=== PATIENT | male | born 1990 | race African-American/Black ===

== ENCOUNTER 2017-04-23 10:22 | Emergency (ER) | payer MEDICAID ==
[~2017-04-23] VITALS: Ht 182.9 cm; Wt 75.0 kg
[2017-04-23 11:28] VITALS: BP 111/74
[2017-04-23 12:06] LABS: BASOPHILS % 0.4 % (0.0-2.0); CARBON DIOXIDE 28 mEq/L (21-32); CHLORIDE 104 mEq/L (98-107); EOSINOPHILS % 0.7 % (0.0-5.0); ETHANOL BLOOD < 10 mg/dL; HEMATOCRIT. 39.9 % (42.0-52.0); HEMOGLOBIN. 13.1 g/dL (14.0-18.0); LYMPHOCYTES % 9.3 % (20.0-50.0); MEAN CORPUSCULAR HEMOGLOBIN 27.2 pg (28.0-32.0); MEAN CORPUSCULAR VOLUME 83.1 fL (80.0-94.0); MEAN PLATELET VOLUME 8.1 fl (7.4-10.4); MONOCYTES % 8.4 % (2.0-8.0); NEUTROPHILS % 81.2 % (40.0-76.0); PLATELET 407 x1000/uL (130-400); RED BLOOD CELL COUNT 4.81 mill/uL (4.7-6.1)
[2017-04-23 16:32] LABS: CLARITY URINE CLEAR (CLEAR); COLOR URINE YELLOW (YELLOW); GLUCOSE URINE NEGATIVE (NEGATIVE); KETONES URINE 2+ (NEGATIVE); LEUKOCYTE ESTERASE URINE NEGATIVE (NEGATIVE); NITRITE URINE NEGATIVE (NEGATIVE); OCCULT BLOOD URINE NEGATIVE (NEGATIVE); PH URINE 5.5 (4.5-8.0); PROTEIN URINE TRACE (NEGATIVE); SPECIFIC GRAVITY URINE 1.033 (1.005-1.030)
[2017-04-23 16:40] LABS: *AMPHETAMINES SCREEN URINE PRESUMTIVE POSITIVE (NEGATIVE); *BARBITURATES SCREEN URINE NEGATIVE (NEGATIVE); *BENZODIAZEPINES SCREEN URINE PRESUMTIVE POSITIVE (NEGATIVE); *COCAINE SCREEN URINE NEGATIVE (NEGATIVE); CANNABINOID URINE SCREEN PRESUMTIVE POSITIVE (NEGATIVE); METHADONE URINE SCREEN NEGATIVE (NEGATIVE); OPIATES URINE SCREEN NEGATIVE (NEGATIVE); PHENCYCLIDINE URINE SCREEN NEGATIVE (NEGATIVE)
== END 2017-04-23 17:45 | disposition home or self-care (01) ==
LOC: ER 11:16
DX: S93.401A Sprain of unspecified ligament of right ankle, initial encounter (principal); J45.909 Unspecified asthma, uncomplicated; F19.10 Other psychoactive substance abuse, uncomplicated; Z72.0 Tobacco use; X58.XXXA Exposure to other specified factors, initial encounter; Y93.39 Activity, other involving climbing, rappelling and jumping off; Y92.89 Other specified places as the place of occurrence of the external cause; Y99.8 Other external cause status
CPT/HCPCS: 36415; 73610; 73630; 80053; 80305; 80307; 80329; 81001; 85025; 99285; G0482

== ENCOUNTER 2018-08-30 12:20 | Emergency (ER) | payer MEDICAID ==
[~2018-08-30] VITALS: Ht 182.9 cm; Wt 77.0 kg
[2018-08-30] MEDS ORDERED: PREDNISONE 20MG TABLET PO STA (14:37)
[2018-08-30] MEDS ORDERED: IPRATROPIUM/ALBUTEROL 0.5-3(2.5)MG/3ML NEB HHN ONE (14:45)
[2018-08-30] MEDS ORDERED: IBUPROFEN 800MG TABLET PO ONE (14:45)
[2018-08-30] MEDS ORDERED: HYDROCODONE/ACETAMINOPHEN 5/325MG TABLET PO ONE (14:45)
[2018-08-30] MEDS ORDERED: AZITHROMYCIN 500 MG TABLET PO ONE (14:45)
[2018-08-30 15:26] LABS: BASOPHILS % 0.9 % (0.0-2.0); EOSINOPHILS % 1.2 % (0.0-5.0); HEMATOCRIT. 43.2 % (42.0-52.0); HEMOGLOBIN. 14.2 g/dL (14.0-18.0); LYMPHOCYTES % 25.8 % (20.0-50.0); MEAN CORPUSCULAR HEMOGLOBIN 27.9 pg (28.0-32.0); MEAN PLATELET VOLUME 8.3 fl (7.4-10.4); NEUTROPHILS % 63.1 % (40.0-76.0); PLATELET 463 x1000/uL (130-400); RED BLOOD CELL COUNT 5.08 mill/uL (4.7-6.1); RED CELL DISTRIBUTION WIDTH 14.3 % (11.6-14.6)
[2018-08-30 15:28] LABS: CHLORIDE 103 mEq/L (98-107)
[2018-08-30 15:33] LABS: ETHANOL BLOOD < 10 mg/dL
[2018-08-30 16:30] VITALS: BP 126/77
== END 2018-08-30 16:55 | disposition home or self-care (01) ==
LOC: ER 14:20
DX: S89.92XD Unspecified injury of left lower leg, subsequent encounter (principal); J45.901 Unspecified asthma with (acute) exacerbation; F12.10 Cannabis abuse, uncomplicated; F17.200 Nicotine dependence, unspecified, uncomplicated; X58.XXXD Exposure to other specified factors, subsequent encounter
CPT/HCPCS: 36415; 71045; 80053; 83880; 84484; 85025; 93005; 94640; 99284; 99406; G0482; J7512; J7620

== ENCOUNTER 2020-10-12 04:32 | Emergency (ER) | payer MEDICAID ==
[~2020-10-12] VITALS: Ht 180.3 cm; Wt 90.0 kg
[2020-10-12 04:34] VITALS: BP 142/74
[2020-10-12] MEDS ORDERED: ACETAMINOPHEN 325MG TABLET PO ONE (06:30)
== END 2020-10-12 06:45 | disposition home or self-care (01) ==
LOC: ER 04:32
DX: R07.2 Precordial pain (principal); F17.200 Nicotine dependence, unspecified, uncomplicated; F12.10 Cannabis abuse, uncomplicated; J45.909 Unspecified asthma, uncomplicated; Z13.9 Encounter for screening, unspecified
CPT/HCPCS: 93005; 99283

== ENCOUNTER 2021-12-10 02:03 | Emergency (ER) | payer OTHER, MEDICAID ==
[~2021-12-10] VITALS: Ht 182.9 cm; Wt 77.0 kg
[2021-12-10 02:05] VITALS: BP 142/80
== END 2021-12-10 03:17 ==
LOC: ER 02:03
DX: R06.02 Shortness of breath (principal); F12.10 Cannabis abuse, uncomplicated
CPT/HCPCS: 71045; 99283

== ENCOUNTER 2025-10-07 10:57 | Emergency (ER) | payer MEDICAID, OTHER ==
[~2025-10-07] VITALS: Ht 177.8 cm; Wt 82.0 kg
[2025-10-07 11:01] VITALS: BP 145/101; PULSE 114; RESP 18; TEMP 98.1; O2SAT 99
== END 2025-10-07 11:14 | disposition left against medical advice (07) ==
LOC: ER 10:57
DX: T51.8X1A Toxic effect of other alcohols, accidental (unintentional), initial encounter (principal); J45.909 Unspecified asthma, uncomplicated; Y92.89 Other specified places as the place of occurrence of the external cause
CPT/HCPCS: 99283